=== PATIENT | male | born 1985 | race Caucasian/White ===

== ENCOUNTER 2020-10-07 09:44 | Emergency (ER) | payer OTHER ==
[~2020-10-07] VITALS: Ht 188 cm; Wt 108.9 kg
--- NOTE | 2020-10-07 09:44 | NUR ---
PT BIB [employer] C/O ABDOMINAL PAIN AND DRUG USED YESTERDAY. PT IS AAOX4, NOT IN RESPIRATORY DISTRESS, HOOKED TO SENIOR UI UX DESIGNER, KEPT RESTED AND COMFORTABLE. WILL CONTINUE TO MONITOR.
--- NOTE | 2020-10-07 10:05 | NUR ---
AT BEDSIDE FOR EVAL.
[2020-10-07] MEDS ORDERED: IV NS 0.9% 1,000 ML IV ONE (10:30)
[2020-10-07] MEDS ORDERED: ONDANSETRON HCL/PF 4 MG/2 ML VIAL IV ONE (10:30)
[2020-10-07] MEDS ORDERED: BUPRENORPHINE HCL 8 MG TAB.SUBL SL ONE (10:30)
[2020-10-07] MEDS ORDERED: ONDANSETRON 4 MG TAB.RAPDIS ONE (10:38)
[2020-10-07] MEDS ORDERED: BUPRENORPHINE HCL 2 MG TAB.SUBL SL ONE (10:38)
--- NOTE | 2020-10-07 11:00 | NUR ---
SS Consult: SS Consult requested for Drug Use. The pt. is a 35-year-old male. SHANNON met with pt. bedside. The pt. is in custody and was brought in by [employer] serial # [id number] for medical clearance to book. The pt. is A&O x 3 and makes poor eye contact. The pt. appears well-groomed. Pt. stated he is in pain and did not want to provide much information. Patient stated he used IV fentanyl, IV heroin and methamphetamine yesterday. Pt. denies SI/HI and denies hallucinations. SW provided pt. with the following Addiction resources. Pt. is ready book pending medical clearance. ADDICTION RESOURCES For Drugs and Alcohol [facility] Substance Abuse Helpline([facility] Outpatient treatment, residential treatment, recovery support for youth and adults [facility] www.WebchutneyfaAlliquaouns[employer] [facility] Teen programs for drug/alcohol education and support [facility] [place]. Program for adults, sliding scale provides support and education Karine Joongel www.Artify It.org [place]; Outpatient/residential treatment programs; transition to sober living [facility] www.cri-help.org [place]; Outpatient and residential treatment programs; transition to sober living [facility] Luis Manuel Licona; Outpatient education and supportive programs for teens and adults [facility] www.oasiswomensrecosborne [facility] memorial hospital[facility].org [place]; Residential treatment and work program for females only [facility] www.[facility].org [place]: Outpatient/residential treatment program for teens and young adults [facility] www.[facility]ic[facility] health.org [place] Detox, inpatient, outpatient for adults and youth [facility], [facility]. [facility]; Outpatient programs and referrals to community residential programs. Alcoholics Anonymous -SFV information and meeting and schedules www.aa-intergroup.org Gf-Kvum-Kpimixd https://al-anon.org/ [place] support groups for family of alcoholics. Marijuana Anonymous www.madistrict6.org -SFV listing of meetings Narcotics Anonymous www.na.org SOBER LIVING RESOURCES [facility] www.soberhousing.Barre A non-profit agency that provides resources to recovery and sober living homes throughout [place], [place], [facility] Mens Sober Living Homes: A Work in Progress, [facility], [place] [facility] Womens Sober Living Homes: [facility] x [address] [place], [place] [facility] Sober Living Homes: [facility] Counseling--Outpatient [facility] [place] [address] [place] [address] (Specializes in in-depth psychotherapy for emotional distress: anxiety, depression, interpersonal conflicts, life transitions, childhood abuse) [facility] [address] [place] [address] (Assist with solving problem marital difficulties, separation & divorce, aging parents, & grief, chronic & terminal illness) [facility] [address] [place] [address] (Deal with loss & grief, anxiety, marital difficulties) Homebound/Mental Health Services [address] [place] [address] (Provide in-home mental services to people who are incapable of leaving their homes) Organization for Needs of the Elderly Senior Service/Resource Center [address] [place] [address] [facility] [address] [place], [place] [id number] PSYCHIATRIC OUTPATIENT SERVICES [facility] Partial Hospitalization and Intensive Outpatient Program (Managed Care and [place] Only)[address] [place] [facility]. [facility] [phone] [facility] Partial Hospitalization and Outpatient [id number] [place] [place], [place] [phone] [facility] Partial Hospitalization and Outpatient Iryxwrt[address] [place], [place] [phone] [facility] [id number] [facility]. [address] [place], [place] [phone] [facility] Partial Hospitalization and Outpatient Anwstvt84344 [place], [phone] Crisis and Hotline Telephone Numbers 24-Hour service unless stated [place] Crisis Hotlines: [facility] Mental Health/Crisis Line........[phone] Suicide Prevention Center (24 Hours).......[phone] Suicide Prevention Crisis Center.......[phone] (24 Hours) Assaults Against Women Hotline.........409.219.6645 (24 Hours -- [facility]) Women and Children Crisis Care Home...........[phone] (24 Hours) Child Abuse Hotline............[phone] [facility] (24 Hours)..........[phone] Alcoholics Anonymous (24 Hours)..........[phone] Cocaine Anonymous (24 Hours)............[phone] Narcotics Anonymous (24 Hours)..........[phone] FLAKITA VARGAS [facility] [address], [place] [address] Mental Health Services Maryann Montano [address] [place] [address] Services: Outpatient therapy for children, teens, young adults, adults, older adults, and families; Psychiatric services, medication support Crisis and Hotline Telephone Numbers 24-Hour service unless stated [place] Crisis Hotlines: [address] Mental Health/Crisis Line........[phone] Suicide Prevention Center (24 Hours).......[phone] Suicide Prevention Crisis Center.......[phone] (24 Hours) Alcoholics Anonymous (24 Hours)..........[phone] [place] Crisis Hotlines: Alcohol and Drug Helpline - Provides referrals to local facilities where adolescents and adults can seek help. Brief intervention. [facility] Helpline [facility] [place] [facility] 7-111-379-NAYAN National Youth Crisis Hotline [place] [facility]. Provides free information on specific disorders, referral directory to mental health providers, national directory of local mental health associations (M-F, 9-5 EST) National [place] of Mental Health Information Line: Provide sinformation and literature on mental illness by disorder-for professionals and general public.
[2020-10-07] MEDS ORDERED: LORAZEPAM 1 MG TABLET PO ONE (12:00)
[2020-10-07] MEDS ORDERED: NALO4SPR NS (12:01)
[2020-10-07] MEDS ORDERED: ONDA4TAB5 PO (12:03)
[2020-10-07] MEDS ORDERED: LORAZEPAM 1 MG TABLET ONE (12:15)
--- NOTE | 2020-10-07 12:26 | NUR ---
Patient discharged in custody in stable condition. Written and verbal after care instructions given. Patient verbalizes understanding of instruction.
[2020-10-07 12:27] VITALS: BP 129/84
== END 2020-10-07 12:27 ==
LOC: ER 09:44
DX: F11.23 Opioid dependence with withdrawal (principal); F19.10 Other psychoactive substance abuse, uncomplicated; R11.2 Nausea with vomiting, unspecified; R00.0 Tachycardia, unspecified; E11.9 Type 2 diabetes mellitus without complications
CPT/HCPCS: 99284; Q0162; J7030